=== PATIENT | male | born 1980 | race Caucasian/White ===

== ENCOUNTER 2018-07-11 06:46 | Emergency (ER) | payer OTHER ==
[~2018-07-11] VITALS: Ht 182.9 cm; Wt 99.8 kg
[~2018-07-11 06:46] MED LIST: BUSPIRONE HCL10 MG PO
[2018-07-11] MEDS ORDERED: LOVASTATIN 20 M20 MG PO (06:58)
[2018-07-11 07:07] LABS: ABSOLUTE BASOPHILS 0.2 thou/uL (0.0-0.2); ABSOLUTE EOSINOPHILS 0.3 thou/uL (0.0-0.7); ABSOLUTE LYMPHOCYTES 3.5 thou/uL (0.8-5.3); ABSOLUTE MONOCYTES 0.7 thou/uL (0.0-1.2); ABSOLUTE NEUTROPHILS 4.6 thou/uL (1.6-8.1); BASOPHILS 1.8 %; EOSINOPHILS 3.2 %; HEMATOCRIT 45.6 % (42.0-52.0); HEMOGLOBIN 15.4 gm/dL (14.0-18.0); LYMPHOCYTES 37.8 %; MCH 29.2 pg (26.0-34.0); MCHC 33.7 g/dL (28.0-37.0); MCV 86.6 fL (80.0-100.0); MONOCYTES 7.7 %; MPV 8.1 fl. (7.2-11.1); NUCLEATED RBCS 0 /100WBC; PLATELET COUNT* 274 thou/uL (150-400); POLYS 49.5 %; RBC 5.27 mil/uL (4.50-6.00); RDW-CV 13.7 % (10.5-14.5); WBC 9.2 thou/uL (4.0-11.0)
[2018-07-11 07:15] LABS: ANION GAP 4 mmol/L (7-16); BUN 13 mg/dL (7-18); CALCIUM 8.7 mg/dL (8.5-10.1); CHLORIDE 106 mmol/L (98-107); CO2 30 mmol/L (21-32); CREATININE 1.4 mg/dL (0.6-1.3); GLUCOSE 95 mg/dL (70-99); POTASSIUM 3.9 mmol/L (3.5-5.1); SODIUM 140 mmol/L (136-145)
[2018-07-11 07:17] LABS: PROTIME 10.7 Seconds (9.20-11.50)
[2018-07-11 07:22] LABS: ALBUMIN 3.7 g/dL (3.4-5.0); ALKALINE PHOSPHATASE 78 U/L (46-116); LIPASE 185 U/L (73-393); SGOT 19 U/L (15-37); SGPT 28 U/L (30-65); TOTAL BILIRUBIN 0.8 mg/dL (<0.1-1.0); TOTAL PROTEIN 7.3 g/dL (6.4-8.2); TROPONIN-I LEVEL <0.06 ng/mL (<0.06)
[2018-07-11] MEDS ORDERED: HYDROCODONE-AP1 EAC6 PO (10:55)
[2018-07-11 11:05] VITALS: BP 122/80
--- NOTE | 2018-07-11 12:26 | EKG ---
[place] [address] ELECTROCARDIOGRAM REPORT Name: LULU YOO Room: [facility]#: [id number] Admission: 07/11/18 Attend Phys: Discharge: 07/11/18 Date of : 84 Report #: [id number] THIS REPORT FOR: //name// [facility] ED Test Date: 2018-07-11 Test Time: 06:54:32 Pat Name: LULU YOO Department: Room: Gender: M Encyclopedia Research Worker: SHANTE : 1980 Requested By: Margarita To Order Number: [id number] MD: Max West Measurements Intervals [place] Rate: 66 P: 57 MA: 151 QRS: 19 QRSD: 88 T: 24 QT: 394 QTc: 413 Interpretive Statements Sinus rhythm RSR' in V1 or V2, probably normal variant Baseline wander in lead(s) V3 Compared to ECG 07/26/2016 07:58:37 RSR' in V1 or V2 now present ST (T wave) deviation no longer present Electronically Signed On 07-11-2018 12:26:32 TOOL CRIB MANAGER by Max West [email or web address] <ELECTRONICALLY SIGNED> By: Max West MD, FACC 07/11/18 1226 0654 0654 Max West MD, FAC /EPI
--- NOTE | 2018-07-12 10:22 | EKG ---
[place] [address] ELECTROCARDIOGRAM REPORT Name: LULU YOO JUWAN Room: [facility]#: [id number] Admission: 07/11/18 Attend Phys: Discharge: 07/11/18 Date of : 84 Report #: [id number] THIS REPORT FOR: //name// [facility] ED Test Date: 2018-07-11 Test Time: 09:20:24 Pat Name: LULU YOO Department: Room: Gender: M Complaint Clerk: SHANTE : 1980 Requested By: Misbah Mcmahon Order Number: [id number] MD: Dereck Godfrey Measurements Intervals [place] Rate: 56 P: 42 [place]: 155 QRS: 7 QRSD: 88 T: 17 QT: 385 QTc: 372 Interpretive Statements Sinus rhythm LVH by voltage Baseline wander in lead(s) V6 Compared to ECG 07/11/2018 06:54:32 Left ventricular hypertrophy now present Electronically Signed On 07-12-2018 10:22:19 CAP MACHINE OPERATOR by Dereck Godfrey [email or web address] <ELECTRONICALLY SIGNED> By: Dereck Godfrey MD, [facility] 07/12/18 1022 9 9 Dereck Godfrey MD, [facility] /EPI
== END 2018-07-11 11:02 | disposition home or self-care (01) ==
LOC: M.ERS 06:46
PROVIDERS: Personal Emergency Response Attendant
DX: R07.89 Other chest pain (principal); E78.00 Pure hypercholesterolemia, unspecified

== ENCOUNTER 2019-04-20 08:27 | Emergency (ER) | payer BC ==
[~2019-04-20] VITALS: Ht 182.9 cm; Wt 99.8 kg
[~2019-04-20 08:27] MED LIST changes: +HYDROCODONE-AP1 EAC6 PO; +LOVASTATIN 20 M20 MG PO
[2019-04-20] MEDS ORDERED: LIPITOR 20 MG T20 M1 PO (08:41)
[2019-04-20] MEDS ORDERED: NAPROSYN500 M1 PO (08:41)
[2019-04-20] MEDS ORDERED: ZOLOFT 50 MG TA50 M1 PO (08:41)
[2019-04-20] MEDS ORDERED: PROTONIX40 M2 PO (08:42)
[2019-04-20] MEDS ORDERED: NORVASC5 M1 PO (08:42)
[2019-04-20 08:56] LABS: ABSOLUTE BASOPHILS 0.1 thou/uL (0.0-0.2); ABSOLUTE EOSINOPHILS 0.3 thou/uL (0.0-0.7); ABSOLUTE LYMPHOCYTES 2.2 thou/uL (0.8-5.3); ABSOLUTE MONOCYTES 0.5 thou/uL (0.0-1.2); ABSOLUTE NEUTROPHILS 3.4 thou/uL (1.6-8.1); BASOPHILS 1.4 %; EOSINOPHILS 4.1 %; HEMATOCRIT 43.8 % (42.0-52.0); HEMOGLOBIN 14.9 gm/dL (14.0-18.0); LYMPHOCYTES 34.1 %; MCH 28.7 pg (26.0-34.0); MCV 84.3 fL (80.0-100.0); MONOCYTES 8.2 %; MPV 7.7 fl. (7.2-11.1); NUCLEATED RBCS 0 /100WBC; PLATELET COUNT* 271 thou/uL (150-400); POLYS 52.2 %; RBC 5.19 mil/uL (4.50-6.00); RDW-CV 13.9 % (10.5-14.5); WBC 6.4 thou/uL (4.0-11.0)
[2019-04-20 09:05] LABS: APTT 26.4 Seconds (25.0-31.3); INR 1.1; PROTIME 10.8 Seconds (9.20-11.50)
[2019-04-20 09:13] LABS: CALCIUM 8.9 mg/dL (8.5-10.1); CREATININE 1.3 mg/dL (0.6-1.3); POTASSIUM 3.8 mmol/L (3.5-5.1)
[2019-04-20 09:19] LABS: ALBUMIN 3.7 g/dL (3.4-5.0); CK-MB MASS 1.4 ng/mL (<0.5-3.6); TOTAL PROTEIN 7.4 g/dL (6.4-8.2)
[2019-04-20 09:33] VITALS: BP 132/83
--- NOTE | 2019-04-20 15:45 | EKG ---
[place] [address] ELECTROCARDIOGRAM REPORT Name: LULU YOO JUWAN Room: [facility]#: [id number] Admission: 04/20/19 Attend Phys: Discharge: 04/20/19 Date of : 84 Report #: [id number] THIS REPORT FOR: //name// [facility] ED Test Date: 2019-04-20 Test Time: 08:32:16 Pat Name: LULU YOO Department: Room: Gender: M Network Security Officer: ROSINA : 1980 Requested By: Avery Becerra Order Number: [id number] MD: Aiden Tiwari Measurements Intervals [place] Rate: 73 P: 119 CT: 142 QRS: 31 QRSD: 94 T: 20 QT: 390 QTc: 430 Interpretive Statements Sinus rhythm RSR' in V1 or V2, probably normal variant Compared to ECG 07/11/2018 09:20:24 RSR' in V1 or V2 now present Left ventricular hypertrophy no longer present Electronically Signed On 04-20-2019 15:45:41 CHEESE COOKER by Aiden Tiwari [email or web address] <ELECTRONICALLY SIGNED> By: Aiden Tiwari MD, [facility] 04/20/19 1545 0832 0832 Aiden Tiwari MD, [facility] /EPI
--- NOTE | 2019-04-20 15:46 | EKG ---
[place] [address] ELECTROCARDIOGRAM REPORT Name: LULU YOO JUWAN Room: [facility]#: [id number] Admission: 04/20/19 Attend Phys: Discharge: 04/20/19 Date of : 84 Report #: [id number] THIS REPORT FOR: //name// [facility] ED Test Date: 2019-04-20 Test Time: 08:38:49 Pat Name: LULU OYO Department: Room: Gender: M Bullet Swaging Machine Operator: : 1980 Requested By: Avery Becerra Order Number: [id number] MD: Aiden Tiwari Measurements Intervals [place] Rate: 70 P: 37 AR: 149 QRS: 3 QRSD: 107 T: 11 QT: 374 QTc: 404 Interpretive Statements Sinus rhythm RSR' in V1 or V2, probably normal variant Compared to ECG 07/11/2018 09:20:24 RSR' in V1 or V2 now present Left ventricular hypertrophy no longer present Electronically Signed On 04-20-2019 15:45:50 SPORTS MARKETING SPECIALIST by Aiden Tiwari [email or web address] <ELECTRONICALLY SIGNED> By: Aiden Tiwari MD, [facility] 04/20/19 1545 0838 0838 Aiden Tiwari MD, [facility] /EPI
== END 2019-04-20 09:34 | disposition home or self-care (01) ==
LOC: M.ERS 08:27
PROVIDERS: Family Medicine
DX: R07.89 Other chest pain (principal); E78.00 Pure hypercholesterolemia, unspecified

== ENCOUNTER 2019-07-15 23:11 | Emergency (ER) | payer BC ==
[~2019-07-15] VITALS: Ht 182.9 cm; Wt 99.8 kg
[~2019-07-15 23:11] MED LIST changes: +LIPITOR 20 MG T20 M1 PO; +NAPROSYN500 M1 PO; +NORVASC5 M1 PO; +PROTONIX40 M2 PO; +ZOLOFT 50 MG TA50 M1 PO
[2019-07-15 23:31] LABS: ABSOLUTE BASOPHILS 0.1 thou/uL (0.0-0.2); ABSOLUTE EOSINOPHILS 0.4 thou/uL (0.0-0.7); ABSOLUTE LYMPHOCYTES 4.9 thou/uL (0.8-5.3); BASOPHILS 0.6 %; EOSINOPHILS 3.1 %; HEMATOCRIT 43.6 % (42.0-52.0); HEMOGLOBIN 15.1 gm/dL (14.0-18.0); LYMPHOCYTES 43.5 %; MCH 29.3 pg (26.0-34.0); MCHC 34.6 g/dL (28.0-37.0); MCV 84.9 fL (80.0-100.0); MONOCYTES 8.8 %; NUCLEATED RBCS 0 /100WBC; PLATELET COUNT* 301 thou/uL (150-400); RBC 5.13 mil/uL (4.50-6.00); RDW-CV 13.8 % (10.5-14.5); WBC 11.3 thou/uL (4.0-11.0)
[2019-07-15] MEDS ORDERED: VITAMIN D2400 UNIT PO (23:31)
[2019-07-15 23:40] LABS: CALCIUM 8.6 mg/dL (8.5-10.1); CREATININE 1.1 mg/dL (0.6-1.3); POTASSIUM 3.7 mmol/L (3.5-5.1)
[2019-07-15 23:52] LABS: ALBUMIN 4.1 g/dL (3.4-5.0); MAGNESIUM 2.1 mg/dL (1.8-2.4); TOTAL BILIRUBIN 0.6 mg/dL (<0.1-1.0)
[2019-07-16 02:20] VITALS: BP 121/76
--- NOTE | 2019-07-17 15:03 | EKG ---
[place] [address] ELECTROCARDIOGRAM REPORT Name: NAILA,LULU JUWAN Room: [facility]#: [id number] Admission: 07/15/19 Attend Phys: Discharge: 07/16/19 Date of : 84 Date of Service: 07/15/19 2317 Report #: [id number] THIS REPORT FOR: //name// [facility] ED Test Date: 2019-07-15 Test Time: 23:17:19 Pat Name: LULU YOO Department: Room: Gender: Clinic Supervisor: ARELI : 1980 Requested By: Misbah Mcmahon Order Number: [id number] MD: Leonard Chaidez Measurements Intervals [place] Rate: 61 P: 43 CT: 157 QRS: 6 QRSD: 111 T: -1 QT: 395 QTc: 398 Interpretive Statements Sinus rhythm Borderline T wave abnormalities Baseline wander in lead(s) I,II,aVR Compared to ECG 04/20/2019 08:38:49 T-wave abnormality now present Electronically Signed On 07-17-2019 15:02:41 COOK COLD MEAT by Leonard Chaidez [email or web address] <ELECTRONICALLY SIGNED> By: Madeleine Chaidez MD, [facility] 07/17/19 1502 2317 2317 Madeleine Chaidez MD, [facility] /EPI
--- NOTE | 2019-07-17 15:04 | EKG ---
[place] [address] ELECTROCARDIOGRAM REPORT Name: LULU YOO Room: [facility]#: [id number] Admission: 07/15/19 Attend Phys: Discharge: 07/16/19 Date of : 84 Date of Service: 07/16/197 Report #: [id number] THIS REPORT FOR: //name// [facility] ED Test Date: 2019-07-16 Test Time: 01:37:18 Pat Name: LULU YOO Department: Room: Gender: Frame Stylist: ARELI : 1980 Requested By: Misbah Mcmahon Order Number: [id number] MD: Leonard Chaidez Measurements Intervals [place] Rate: 51 P: 33 VT: 169 QRS: 12 QRSD: 94 T: 6 QT: 426 QTc: 393 Interpretive Statements Sinus rhythm Compared to ECG 04/20/2019 08:38:49 No significant changes Electronically Signed On 07-17-2019 15:03:18 SEAL MIXER by Leonard Chaidez [email or web address] <ELECTRONICALLY SIGNED> By: Madeleine Chaidez MD, [facility] 07/17/19 1503 0137 6 Madeleine Chaidez MD, [facility] /EPI
== END 2019-07-16 02:27 | disposition home or self-care (01) ==
LOC: M.ERS 23:11
PROVIDERS: Emergency Medicine Emergency Medical Services
DX: R07.89 Other chest pain (principal); E78.00 Pure hypercholesterolemia, unspecified; I10 Essential (primary) hypertension

== ENCOUNTER → 2019-08-08 | Outpatient (CLI) | payer OTHER ==
[~2019-08-08] MED LIST changes: +VITAMIN D2400 UNIT PO
== END ==
LOC: M.CT 08:06
DX: I25.10 Atherosclerotic heart disease of native coronary artery without angina pectoris (principal)

== ENCOUNTER 2019-11-21 09:27 | Emergency (ER) | payer BC ==
[~2019-11-21] VITALS: Ht 182.9 cm; Wt 111.1 kg
[2019-11-21 10:13] LABS: ABSOLUTE BASOPHILS 0.1 thou/uL (0.0-0.2); ABSOLUTE EOSINOPHILS 0.2 thou/uL (0.0-0.7); ABSOLUTE LYMPHOCYTES 2.8 thou/uL (0.8-5.3); ABSOLUTE MONOCYTES 0.6 thou/uL (0.0-1.2); ABSOLUTE NEUTROPHILS 3.8 thou/uL (1.6-8.1); BASOPHILS 1.9 %; EOSINOPHILS 2.3 %; HEMATOCRIT 43.6 % (42.0-52.0); HEMOGLOBIN 14.9 gm/dL (14.0-18.0); LYMPHOCYTES 36.8 %; MCH 28.7 pg (26.0-34.0); MCHC 34.1 g/dL (28.0-37.0); MONOCYTES 8.4 %; NUCLEATED RBCS 0 /100WBC; PLATELET COUNT* 275 thou/uL (150-400); POLYS 50.6 %; RBC 5.19 mil/uL (4.50-6.00); RDW-CV 13.6 % (10.5-14.5); WBC 7.5 thou/uL (4.0-11.0)
[2019-11-21 10:22] LABS: CALCIUM 8.9 mg/dL (8.5-10.1); CREATININE 1.3 mg/dL (0.6-1.3); POTASSIUM 4.2 mmol/L (3.5-5.1)
[2019-11-21 10:27] LABS: ALBUMIN 3.6 g/dL (3.4-5.0); TOTAL BILIRUBIN 0.7 mg/dL (<0.1-1.0); TOTAL PROTEIN 7.6 g/dL (6.4-8.2)
[2019-11-21 11:55] LABS: URINE BILIRUBIN NEGATIVE (Negative); URINE BLOOD NEGATIVE (Negative); URINE CLARITY CLEAR; URINE COLOR YELLOW; URINE GLUCOSE-RANDOM NEGATIVE (Negative); URINE KETONES NEGATIVE (Negative); URINE LEUKOCYTES-REFLEX NEGATIVE (Negative); URINE NITRITE-REFLEX NEGATIVE (Negative); URINE PROTEIN NEGATIVE (Negative); URINE SPECIFIC GRAVITY <= 1.005 (1.005-1.030); URINE UROBILINOGEN 0.2 E.U./dl (0.2-1.0)
[2019-11-21] MEDS ORDERED: DULCOLAX STOOL100 M1 PO (12:17)
[2019-11-21] MEDS ORDERED: ANUSOL-HC30 GM TOP (12:17)
[2019-11-21 12:27] VITALS: BP 142/70
--- NOTE | 2019-11-22 19:18 | EKG ---
[place] [address] ELECTROCARDIOGRAM REPORT Name: LULU YOO Room: [facility]#: [id number] Admission: 11/21/19 Attend Phys: Discharge: 11/21/19 Date of : 84 Date of Service: 11/21/19 1021 Report #: [id number] THIS REPORT FOR: //name// [facility] ED Test Date: 2019-11-21 Test Time: 10:21:16 Pat Name: LULU YOO Department: Room: Gender: Position Classifier: [facility] : 1980 Requested By: Misbah Mcmahon Order Number: [id number] MD: Joseph Manuel Measurements Intervals [place] Rate: 68 P: 51 [place]: 152 QRS: 17 QRSD: 94 T: 6 QT: 374 QTc: 398 Interpretive Statements Sinus rhythm Baseline wander in lead(s) V6 Compared to ECG 07/16/2019 01:37:18 No significant changes Electronically Signed On 11-22-2019 17:38:04 CDT by Joseph Manuel [email or web address] <ELECTRONICALLY SIGNED> By: Joseph Manuel MD, [facility] 11/22/19 1738 1021 1021 Joseph Manuel MD, [facility] /EPI
== END 2019-11-21 12:28 | disposition home or self-care (01) ==
LOC: M.ERS 09:27
PROVIDERS: Emergency Medicine Emergency Medical Services
DX: K60.2 Anal fissure, unspecified (principal); F12.90 Cannabis use, unspecified, uncomplicated; Z79.899 Other long term (current) drug therapy

== ENCOUNTER 2021-06-16 09:18 | Emergency (ER) | payer BC ==
[~2021-06-16] VITALS: Ht 182.9 cm; Wt 127.0 kg
[~2021-06-16 09:18] MED LIST changes: +ANUSOL-HC30 GM TOP; +DULCOLAX STOOL100 M1 PO
[2021-06-16 10:58] LABS: URINE BILIRUBIN NEGATIVE (Negative); URINE BLOOD NEGATIVE (Negative); URINE CLARITY CLEAR; URINE COLOR YELLOW; URINE GLUCOSE-RANDOM NEGATIVE (Negative); URINE KETONES TRACE (Negative); URINE LEUKOCYTES NEGATIVE (Negative); URINE NITRITE NEGATIVE (Negative); URINE PROTEIN NEGATIVE (Negative); URINE SPECIFIC GRAVITY 1.025 (1.005-1.030); URINE UROBILINOGEN 0.2 E.U./dl (0.2-1.0)
[2021-06-16 11:16] LABS: ABSOLUTE EOSINOPHILS 0.2 thou/uL (0.0-0.7); ABSOLUTE LYMPHOCYTES 2.7 thou/uL (0.8-5.3); ABSOLUTE MONOCYTES 0.7 thou/uL (0.0-1.2); ABSOLUTE NEUTROPHILS 5.1 thou/uL (1.6-8.1); BASOPHILS 0.4 %; EOSINOPHILS 2.1 %; HEMATOCRIT 42.8 % (42.0-52.0); HEMOGLOBIN 14.6 gm/dL (14.0-18.0); LYMPHOCYTES 30.8 %; MCH 28.4 pg (26.0-34.0); MCV 83.5 fL (80.0-100.0); MONOCYTES 8.2 %; NUCLEATED RBCS 0 /100WBC; PLATELET COUNT* 280 thou/uL (150-400); POLYS 58.5 %; RBC 5.13 mil/uL (4.50-6.00); RDW-CV 13.8 % (10.5-14.5); WBC 8.7 thou/uL (4.0-11.0)
[2021-06-16 11:33] LABS: CALCIUM 8.8 mg/dL (8.5-10.1); CREATININE 1.2 mg/dL (0.6-1.3); POTASSIUM 3.8 mmol/L (3.5-5.1)
[2021-06-16 11:38] LABS: TOTAL BILIRUBIN 0.9 mg/dL (<0.1-1.0); TOTAL PROTEIN 7.8 g/dL (6.4-8.2)
--- NOTE | 2021-06-16 12:47 | EKG ---
[place] [address] ELECTROCARDIOGRAM REPORT Name: LULU YOO JUWAN Room: [facility]#: [id number] Admission: 06/16/21 Attend Phys: Discharge: Date of : 84 Date of Service: 06/16/21 1117 Report #: [id number] THIS REPORT FOR: //name// [facility] ED Test Date: 2021-06-16 Test Time: 11:17:46 Pat Name: LULU YOO Department: Room: Gender: Shearing Shed Hand: : 1980 Requested By: Cooper Deleon Order Number: [id number] MD: Leonard Chaidez Measurements Intervals [employer] Rate: 57 P: 44 [place]: 156 QRS: 5 QRSD: 81 T: 15 QT: 386 QTc: 376 Interpretive Statements Sinus rhythm RSR' in V1 or V2, probably normal variant Compared to ECG 11/21/2019 10:21:16 RSR' in V1 or V2 now present Electronically Signed On 06-16-2021 12:46:57 FILM PROCESSING SUPERVISOR by Leonard Chaidez [email or web address] <ELECTRONICALLY SIGNED> By: Madeleine Chaidez MD, [facility] 06/16/21 1246 1117 1117 Madeleine Chaidez MD, [facility] /EPI
[2021-06-16] MEDS ORDERED: HYDROCODON-ACE1 EAC7 PO (13:11)
[2021-06-16 13:25] VITALS: BP 131/90
== END 2021-06-16 13:25 | disposition home or self-care (01) ==
LOC: M.ERS 09:18
PROVIDERS: Physician Assistant
DX: K63.89 Other specified diseases of intestine (principal); E78.00 Pure hypercholesterolemia, unspecified; K21.9 Gastro-esophageal reflux disease without esophagitis; I10 Essential (primary) hypertension; Z79.899 Other long term (current) drug therapy